=== PATIENT | male | born 1950 | race African-American/Black ===

== ENCOUNTER 2016-06-07 13:50 | Emergency (ER) | payer MEDICARE, MEDICAID ==
[~2016-06-07] VITALS: Ht 188 cm; Wt 77.1 kg
[~2016-06-07 13:50] MED LIST: ASP81EC PO; DOCU-94 PO; FURO20TA3 PO; KEP500T PO; METO100T87 PO; NIFE30TA76 PO; NOR5T PO; QUE25T PO; TEMA30CA PO
[2016-06-07] MEDS ORDERED: cloNIDine HCL 0.1 MG TAB PO ONE (14:30)
[2016-06-07 15:02] LABS: Basophils # (auto) 0 uL; Basophils % (auto) 0.6 % (0.0-2.0); DEFINITIVE VIEW TRANSMISSION; Eosinophils # (auto) 0.2 uL; Hematocrit 41.3 % (41.0-53.0); Lymphocytes # (auto) 2.5 uL; Lymphocytes % (auto) 44.8 % (10.0-50.0); Mean Corpuscular Hemoglobin 23.8 pg (28.0-32.0); Mean Corpuscular Hgb Conc. 31.6 g/dL (32.0-36.0); Mean Corpuscular Volume 75.4 fL (80.0-100.0); Mean Platelet Volume 11.1 fL (7.4-10.4); Monocytes # (auto) 0.5 uL; Monocytes % (auto) 8.4 % (0.0-12.0); Neutrophils # (auto) 2.4 uL; Neutrophils % (auto) 43.2 % (37.0-80.0); Platelet Count (auto) 185 10^3/uL (140-450); Red Cell Distribution Width 15.1 % (11.6-16.0); SUSPECT VIEW TRANSMISSION; White Blood Cell 5.6 10^3/uL (4.4-10.8)
[2016-06-07 15:05] LABS: Albumin 3.9 g/dL (3.4-5.0); BUN/Creatinine Ratio 5.8; Calcium 9.2 mg/dL (8.5-10.1); Potassium 3.7 mmol/L (3.5-5.1)
[2016-06-07 15:08] LABS: Bilirubin, Total 0.5 mg/dL (0.2-1.0)
[2016-06-07 16:00] VITALS: BP 166/116
[2016-06-07 16:55] LABS: Urine Bilirubin Negative (Negative); Urine Blood TRACE /uL (Negative); Urine Color Yellow (Yellow); Urine Hyaline Cast FEW /lpf (0 - 2); Urine Ketone Negative (Negative); Urine Nitrite Negative (Negative); Urine RBC <1 /hpf (0 - 3); Urine Urobilinogen Normal (Negative); Urine pH 5.5 (5.0-8.0)
[2016-06-07 16:57] LABS: Urine Glucose 2+ mg/dL (Normal)
== END 2016-06-07 16:39 | disposition home or self-care (01) ==
LOC: ER 14:11
DX: I10 Essential (primary) hypertension (principal); K21.9 Gastro-esophageal reflux disease without esophagitis; E78.5 Hyperlipidemia, unspecified; Z86.73 Personal history of transient ischemic attack (TIA), and cerebral infarction without residual deficits; R53.1 Weakness
CPT/HCPCS: 36415; 70450; 80053; 81001; 85025; 93005

== ENCOUNTER 2016-09-21 03:45 | Inpatient (IN) | payer MEDICARE, MEDICAID ==
[~2016-09-21] VITALS: Ht 193 cm; Wt 74.1 kg
[~2016-09-21 03:45] MED LIST changes: +HYDR-4663 PO; -NOR5T PO
[2016-09-21 04:34] LABS: Basophils # (auto) 0 uL; Basophils % (auto) 0.6 % (0.0-2.0); CONDITION Y; DEFINITIVE SEE PRINTOUT; Eosinophils # (auto) 0.1 uL; Eosinophils % (auto) 1.5 % (0.0-7.0); Hematocrit 41.4 % (41.0-53.0); Hemoglobin 13.6 g/dL (13.5-17.5); Lymphocytes # (auto) 2.2 uL; Mean Corpuscular Hemoglobin 24.2 pg (28.0-32.0); Mean Corpuscular Hgb Conc. 32.8 g/dL (32.0-36.0); Mean Corpuscular Volume 73.6 fL (80.0-100.0); Mean Platelet Volume 11.6 fL (7.4-10.4); Monocytes # (auto) 0.3 uL; Monocytes % (auto) 5.8 % (0.0-12.0); Neutrophils # (auto) 2.8 uL; Neutrophils % (auto) 51.1 % (37.0-80.0); Platelet Count (auto) 192 10^3/uL (140-450); White Blood Cell 5.4 10^3/uL (4.4-10.8)
[2016-09-21 05:00] LABS: Allen Test Yes; Base Excess 1.2 mmol/L (-2.0-2.0); Blood 02Sat 95.4 % (96-100); Blood COHb 0.3 % (0.5-1.5); Blood MetHb 0.3 % (0.0-1.5); HCO3 24.5 mmol/L (22-26.0); HHb 4.6 % (0.0-5.0); MODE ROOM AIR; O2Hb 94.8 % (94.0-97.0); PCO2 34.6 mmHg (35.0-45.0); PCO2(T) 34.6 mmHg (35.0-45.0); Sample Type Arterial; pH 7.468 (7.350-7.450)
[2016-09-21 05:02] LABS: Albumin 3.9 g/dL (3.4-5.0); Anion Gap 10 (5-15); Aspartate Aminotransferase 17 U/L (15-37); Blood Urea Nitrogen 11 mg/dL (7-18); Calcium 9.2 mg/dL (8.5-10.1); Carbon Dioxide 26 mmol/L (21-32); Chloride 107 mmol/L (98-107); GFR African American 39 mL/min; GFR Non-African American 32 mL/min; Glucose 121 mg/dL (74-106); Sodium 143 mmol/L (136-145)
[2016-09-21 05:05] LABS: Alkaline Phosphatase 77 U/L (45-117); Bilirubin, Total 0.4 mg/dL (0.2-1.0); Total Protein 8.4 g/dL (6.4-8.2)
[2016-09-21 05:07] LABS: INR 1.02 (0.9-1.15); Partial Thromboplastin Time 25.4 sec (22.64-33.71); Prothrombin Time 11.1 sec (9.37-12.3)
[2016-09-21 05:11] LABS: Potassium 2.8 mmol/L (3.5-5.1)
[2016-09-21 05:12] LABS: Magnesium 2.1 mg/dL (1.6-2.6)
[2016-09-21 05:16] LABS: Lactic Acid w/Reflex 2.4 mmol/L (0.4-2.0)
[2016-09-21 05:17] LABS: B-Type Natriuretic Peptide 23.08 pg/mL (0-100)
[2016-09-21 05:25] LABS: Urine Bilirubin Negative (Negative); Urine Color Yellow (Yellow); Urine Hyaline Cast FEW /lpf (0 - 2); Urine Ketone Negative (Negative); Urine Nitrite Negative (Negative); Urine RBC <1 /hpf (0 - 3); Urine Squamous Epithelial Cell FEW /hpf (<5); Urine Urobilinogen Normal (Negative); Urine pH 5.5 (5.0-8.0)
[2016-09-21 05:25] LABS: REFLEX LACTIC ACID YES OR NO YES
[2016-09-21 05:26] LABS: Urine Blood 1+ /uL (Negative); Urine Glucose 1+ mg/dL (Normal)
[2016-09-21 05:26] LABS: Temperature: 22.5 C (20.0-25.0)
[2016-09-21] MEDS ORDERED: POTASSIUM CHL 10% (20 MEQ/15ML) ORAL SOLN PO ONE (05:30)
[2016-09-21] MEDS ORDERED: POTASSIUM CHL 20MEQ/100ML 100 ML IV ONE (05:30)
[2016-09-21] MEDS ORDERED: hydrALAZINE HCL 20 MG/ML VL IV ONE (05:45)
[2016-09-21] MEDS ORDERED: HYDROcodone-ACET 5/325MG TAB PO PRN (06:00)
[2016-09-21] MEDS ORDERED: NITROGLYCERIN 0.4 MG SL TAB SL PRN (06:00)
[2016-09-21] MEDS ORDERED: MORPHINE SULF INJ 2 MG/ML SYRINGE 1ML IV PRN (06:00)
[2016-09-21] MEDS ORDERED: SODIUM CHLORIDE 0.9% 500 ML IV ONE (06:00)
[2016-09-21] MEDS ORDERED: TEMAZEPAM 15 MG CAP PO PRN (06:00)
[2016-09-21] MEDS ORDERED: LACTULOSE 20Gm/30ML SOLN PO PRN (06:00)
[2016-09-21] MEDS ORDERED: SODIUM CHLORIDE 0.9% 1,000 ML IV ONE (06:15)
[2016-09-21] MEDS: cefTRIAXone 1GM/50ML D5W 50 ML IV SCH ×2 (06:28→11:58)
[2016-09-21] MEDS: AZITHROMYCIN 500MG/D5W 250ML 250 ML IV SCH ×2 (07:16→10:00)
[2016-09-21] MEDS: SODIUM CHLORIDE 0.9% 1,000 ML IV SCH ×2 (08:03→18:25)
[2016-09-21] MEDS ORDERED: ENOXAPARIN SOD 30 MG/0.3 ML SYRINGE SC SCH (10:00)
[2016-09-21] MEDS: PANTOPRAZOLE SODIUM 40 MG/10 ML VIAL IV SCH (11:59)
[2016-09-21] MEDS: ENOXAPARIN SOD 40 MG/0.4 ML SYRINGE SC SCH (11:59)
[2016-09-21] MEDS: ASPirin 81 mg TAB PO SCH (12:17)
[2016-09-21] MEDS: NIFEdipine ER 30 MG TAB PO SCH (12:17)
[2016-09-21] MEDS: LEVETIRACETAM 500 MG TAB PO SCH ×2 (12:18→21:40)
[2016-09-21] MEDS: METOPROLOL SUCCINATE XL 50 MG TAB PO SCH ×2 (12:18→21:40)
[2016-09-21 13:00] VITALS: BP 116/119
[2016-09-21 16:57] VITALS: BP 166/98
[2016-09-21 19:00] VITALS: BP 140/87
[2016-09-21] MEDS: QUEtiapine FUMARATE 25 MG TAB PO SCH (21:40)
[2016-09-22 05:05] LABS: Basophils # (auto) 0 uL; Basophils % (auto) 0.4 % (0.0-2.0); CONDITION Y; DEFINITIVE SEE PRINTOUT; Eosinophils # (auto) 0.1 uL; Eosinophils % (auto) 2.9 % (0.0-7.0); Hematocrit 34.8 % (41.0-53.0); Hemoglobin 11.4 g/dL (13.5-17.5); Lymphocytes # (auto) 2.6 uL; Lymphocytes % (auto) 51.7 % (10.0-50.0); Mean Corpuscular Hemoglobin 24.3 pg (28.0-32.0); Mean Corpuscular Hgb Conc. 32.7 g/dL (32.0-36.0); Mean Corpuscular Volume 74.3 fL (80.0-100.0); Monocytes # (auto) 0.4 uL; Monocytes % (auto) 7.3 % (0.0-12.0); Neutrophils # (auto) 1.9 uL; Neutrophils % (auto) 37.7 % (37.0-80.0); Platelet Count (auto) 172 10^3/uL (140-450); Red Cell Distribution Width 15.4 % (11.6-16.0); White Blood Cell 5.1 10^3/uL (4.4-10.8)
[2016-09-22 05:17] VITALS: BP 165/97
[2016-09-22 05:27] LABS: Albumin 3.1 g/dL (3.4-5.0); BUN/Creatinine Ratio 4.3; Bilirubin, Total 0.4 mg/dL (0.2-1.0); Calcium 8.6 mg/dL (8.5-10.1); Potassium 3.4 mmol/L (3.5-5.1); Total Protein 6.4 g/dL (6.4-8.2)
[2016-09-22] MEDS: SODIUM CHLORIDE 0.9% 1,000 ML IV SCH ×2 (06:48→21:54)
[2016-09-22] MEDS: cefTRIAXone 1GM/50ML D5W 50 ML IV SCH (08:46)
[2016-09-22 09:00] VITALS: BP 159/98
[2016-09-22] MEDS: AZITHROMYCIN 500MG/D5W 250ML 250 ML IV SCH (10:00)
[2016-09-22] MEDS: ENOXAPARIN SOD 40 MG/0.4 ML SYRINGE SC SCH (10:00)
[2016-09-22] MEDS: PANTOPRAZOLE SODIUM 40 MG/10 ML VIAL IV SCH (10:30)
[2016-09-22] MEDS: ASPirin 81 mg TAB PO SCH (10:31)
[2016-09-22] MEDS: METOPROLOL SUCCINATE XL 50 MG TAB PO SCH ×2 (10:31→21:54)
[2016-09-22] MEDS: NIFEdipine ER 30 MG TAB PO SCH (10:32)
[2016-09-22] MEDS: LEVETIRACETAM 500 MG TAB PO SCH ×2 (10:32→21:54)
[2016-09-22 13:00] VITALS: BP 143/109
[2016-09-22 16:54] VITALS: BP 151/95
[2016-09-22] MEDS: QUEtiapine FUMARATE 25 MG TAB PO SCH (21:55)
[2016-09-22 22:00] VITALS: BP 158/108
[2016-09-22] MEDS: hydrALAZINE HCL 25 MG TAB PO PRN (23:54)
[2016-09-23] MEDS ORDERED: TEMAZEPAM 15 MG CAP PO PRN (02:15)
[2016-09-23] MEDS ORDERED: HYDROcodone-ACET 5/325MG TAB PO PRN (02:15)
[2016-09-23 05:00] VITALS: BP 153/106
[2016-09-23 09:00] VITALS: BP 159/98
[2016-09-23] MEDS ORDERED: POTASSIUM CHL 20 Meq TABLET PO ONE (09:00)
[2016-09-23] MEDS ORDERED: FUROSEMIDE 20 MG TAB PO SCH (10:00)
[2016-09-23] MEDS ORDERED: METOPROLOL SUCCINATE XL 50 MG TAB PO SCH (10:00)
[2016-09-23] MEDS ORDERED: NIFEdipine ER 30 MG TAB PO SCH ×2 (10:00)
[2016-09-23] MEDS ORDERED: DOCUSATE SOD 100 MG CAP PO SCH (10:00)
[2016-09-23] MEDS ORDERED: ASPirin-EC 81 mg tab PO SCH (10:00)
[2016-09-23] MEDS ORDERED: LEVETIRACETAM 500 MG TAB PO SCH (10:00)
[2016-09-23] MEDS: LEVETIRACETAM 500 MG TAB PO SCH (10:54)
[2016-09-23] MEDS: METOPROLOL SUCCINATE XL 50 MG TAB PO SCH (10:56)
[2016-09-23] MEDS: ASPirin 81 mg TAB PO SCH (10:56)
[2016-09-23] MEDS: PANTOPRAZOLE SODIUM 40 MG/10 ML VIAL IV SCH (11:02)
[2016-09-23] MEDS: ENOXAPARIN SOD 40 MG/0.4 ML SYRINGE SC SCH (11:04)
[2016-09-23 13:00] VITALS: BP 175/109
[2016-09-23] MEDS: hydrALAZINE HCL 25 MG TAB PO PRN (14:05)
[2016-09-23 14:12] VITALS: BP 150/88
[2016-09-23] MEDS ORDERED: QUEtiapine FUMARATE 25 MG TAB PO SCH (22:00)
[2016-09-24] MEDS ORDERED: CLON0.2D6 PO (09:11)
[2016-09-24] MEDS ORDERED: AMLO5TAB2 PO (09:18)
[2016-09-24] MEDS ORDERED: ROSU20TA14 PO (09:18)
[2016-10-01] MEDS ORDERED: ATOR20TA50 PO (13:10)
[2016-10-01] MEDS ORDERED: CLO01T PO (13:10)
[2016-10-01] MEDS ORDERED: ASP81EC PO (13:10)
[2016-10-01] MEDS ORDERED: LINE600T PO (13:15)
[2016-10-02] MEDS ORDERED: NITR-39 PO (12:53)
== END 2016-09-23 19:44 | disposition home or self-care (01) | DRG 52 ==
LOC: ER 03:45 → EDBD 03:45 → TELE 03:46 → TELE-E-ADS 09:38 → TELE-WESTW 11:01
PROVIDERS: ADMIT Family Medicine; ATTEND Nurse Practitioner Acute Care
DX: G93.40 Encephalopathy, unspecified (principal); N17.0 Acute kidney failure with tubular necrosis; E87.2 Acidosis; E78.5 Hyperlipidemia, unspecified; E87.6 Hypokalemia; I10 Essential (primary) hypertension; K21.9 Gastro-esophageal reflux disease without esophagitis; Z86.73 Personal history of transient ischemic attack (TIA), and cerebral infarction without residual deficits; Z79.899 Other long term (current) drug therapy; Z79.82 Long term (current) use of aspirin
CPT/HCPCS: 36415; 36600; 70450; 71010; 80053; 80061; 80307; 80320; 81001; 82140; 82805; 83605; 83735; 83880; 84443; 84484; 85025; 85610; 85730; 86141; 87040; 93005; 96361; 96365; 96372; 96375; C9113; J0696; J3480